=== PATIENT | female | born 1970 | race Two or more races ===

== ENCOUNTER → 2024-11-07 | Outpatient (CLI) | payer MEDICAID, SELFPAY ==
--- NOTE | 2024-11-07 09:30 | XR_ITS ---
Examination: Screening digital mammography, bilateral Computer aided detection 3-D breast Tomosynthesis, bilateral Date and time of exam: November 07, 2024 1030 hours, compared to mammograms dating to September 04, 2013 Indication: Screening Technique: Nonmagnified MLO, CC views of the breasts to been obtained, reconstructed from 3-D Tomosynthesis images. R2 computer aided detection program utilized for evaluation of suspicious masses and/or abnormal calcifications. 3-D Tomosynthesis images obtained. Findings: Scattered areas of fibroglandular density. Benign calcifications. Slightly more dense focal asymmetry retroareolar region right breast Impression: BI-RADS Category 0: Incomplete: Need additional imaging evaluation Slightly more dense focal asymmetry retroareolar region right breast, recommend repeat right breast sonography follow-up
== END | disposition home or self-care (01) ==
LOC: CDIM 10:23
PROVIDERS: Referring Provider Physician Assistant; Visit Provider Physician Assistant
DX: Z12.31 Encounter for screening mammogram for malignant neoplasm of breast (principal); N64.89 Other specified disorders of breast; R92.8 Other abnormal and inconclusive findings on diagnostic imaging of breast
CPT/HCPCS: 77063; 77067

== ENCOUNTER → 2024-11-28 | Outpatient (CLI) | payer MEDICAID, SELFPAY ==
--- NOTE | 2024-11-28 10:30 | XR_ITS ---
Examination: Breast ultrasound, unilateral, right complete Date and time of exam: November 23, 2024 1558 hours INDICATIONS: More dense focal asymmetry retroareolar region right breast on mammogram 11/07/2024 Technique: Real-time jay scale ultrasonographic imaging performed right breast including all 4 quadrants as well as nipple retroareolar and axillary region. Findings: 12:00 nodule circumscribed 5 x 7 mm. 1:00 hyperechoic nodule circumscribed 10 x 11 mm 2:00 hyperechoic nodule circumscribed 9 x 5 mm 3:00 hyperechoic circumscribed nodule 6 x 4 mm IMPRESSION: BI-RADS Category 3: Probably benign lipomas as above Recommend 1 additional 6-month right breast sonogram follow-up to document stability of these nodules
== END | disposition home or self-care (01) ==
PROVIDERS: PCP Physician Assistant; Referring Provider Physician Assistant; Visit Provider Physician Assistant
DX: N63.15 Unspecified lump in the right breast, overlapping quadrants (principal); N63.12 Unspecified lump in the right breast, upper inner quadrant
CPT/HCPCS: 76641